=== PATIENT | female | born 1950 ===

== ENCOUNTER 2019-10-09 11:26 | Outpatient (CLI) | payer OTHER ==
[2019-10-10 12:10] LABS: SARS-CoV-2 MS2 Positive; SARS-CoV-2 N Gene Negative; SARS-CoV-2 S Gene Negative; SARS-CoV-2 by NAA Not Detected (NotDetected); SARS-CoV-2 orf1ab Negative
== END 2019-10-09 11:27 | disposition home or self-care (01) ==
LOC: LABSCS 11:26
PROVIDERS: ATTEND Surgery
DX: Z01.812 Encounter for preprocedural laboratory examination (principal); Z11.59 Encounter for screening for other viral diseases; R13.14 Dysphagia, pharyngoesophageal phase
CPT/HCPCS: 87635; U0003

== ENCOUNTER 2022-07-27 15:19 | Observation (INO) | payer OTHER ==
[~2022-07-27 15:19] MED LIST: Iopamidol-370 76% 500 ML MDV (1 ML CHARGE) ONE
[2022-07-27 19:38] VITALS: BMI 23.7
[2022-07-27] MEDS ORDERED: Acetaminophen 650 MG Suppository PR PRN (21:04)
[2022-07-27] MEDS ORDERED: Ondansetron PF 4 MG/2 ML Vial IVP PRN (21:04)
[2022-07-27] MEDS ORDERED: Acetaminophen 325 MG TAB PO PRN (21:04)
[2022-07-27] MEDS ORDERED: hydrALAZINE 20 MG/ML VIAL SLOW IVP PRN (21:04)
[2022-07-27] MEDS ORDERED: Ondansetron ODT 4 MG TAB PO PRN (21:04)
[2022-07-28 05:25] LABS: #Eosinphils 0.2 thou/uL (0.0-0.7); #Monocytes 0.4 thou/uL (0.11-0.59); #Neutrophils 1.8 thou/uL (1.40-6.50); %Basophils 0.5 % (0.0-1.0); %Eosinophils 4.9 % (0.0-10.0); %Lymphocytes 35.2 % (21.0-51.0); %Monocytes 10.4 % (0.0-10.0); %Neutrophils 48.7 % (42.0-75.0); Hemoglobin 12.8 g/dL (12.0-16.0); Mean Corpuscular HGB CONC 32.6 g/dL (32.0-36.0); Mean Corpuscular Hemoglobin 28.6 pg (27.0-31.0); Mean Corpuscular Volume 87.9 fl (78.0-98.0); Mean Platelet Volume 12.3 fL (7.4-10.4); Platelet Count 147 10x3/uL (130-400); RBC Distribution Width 13.2 % (11.5-14.5); Red Blood Cell (RBC) Count 4.47 mill/uL (4.20-5.40); White Blood Cell (WBC) Count 3.6 10x3/uL (4.8-10.8)
[2022-07-28 05:48] LABS: Anion Gap 9 mmol/L (10-20); BUN (Urea Nitrogen) 6 mg/dL (9.8-20.1); Calc. Creatinine Clearance 66 mL/min (70-130); Calcium 8.6 mg/dL (7.8-10.44); Carbon Dioxide 28 mmol/L (23-31); Cardiac Risk 3.6 (Less than 4.5); Chloride 107 mmol/L (98-107); Cholesterol 179 mg/dl (< 200 Desired); Estimated GFR 76; Glucose 79 mg/dL (80-115); HDL Cholesterol 50 mg/dL (>60 Neg Risk); LDL Cholesterol, Calculated 111 mg/dL; Sodium 140 mmol/L (136-145); Triglycerides 92 mg/dL (Less than 150)
[2022-07-28] MEDS ORDERED: Aspirin 81 mg Enteric Coated Tablet PO SCH (09:00)
[2022-07-28] MEDS ORDERED: HumaLOG 300 UNITS/3 ML VIAL SC PRN (09:03)
[2022-07-28] MEDS ORDERED: Dextrose 50% Abboject 50 ML SYRINGE SLOW IVP PRN (09:03)
[2022-07-28] MEDS ORDERED: Dextrose 5% in Water 1,000 ML IV PRN (09:03)
[2022-07-28] MEDS ORDERED: Pregabalin 75 MG CAP PO SCH ×2 (09:15→21:00)
[2022-07-28] MEDS ORDERED: Escitalopram Oxalate 20 mg Tablet PO SCH (09:15)
[2022-07-28 11:54] LABS: Magnesium 1.9 mg/dL (1.6-2.6)
[2022-07-28 12:34] VITALS: BP 120/78; TEMP 97.8
[2022-07-28] MEDS ORDERED: Atorvastatin Calcium 40 MG TAB PO SCH (21:00)
[2022-07-28] MEDS ORDERED: Non-Formulary Item 1 EACH (Pregabalin [Lyrica] 150 MG Capsule) PO SCH (21:00)
[2022-07-29] MEDS ORDERED: Escitalopram Oxalate 20 mg Tablet PO SCH (09:00)
== END 2022-07-28 15:45 | disposition home or self-care (01) ==
LOC: NEURO 18:58
PROVIDERS: ADMIT Internal Medicine; ATTEND Internal Medicine
DX: R47.81 Slurred speech (principal); R42 Dizziness and giddiness; R53.1 Weakness; G89.29 Other chronic pain; M54.9 Dorsalgia, unspecified; I08.8 Other rheumatic multiple valve diseases; Z79.85 Long-term (current) use of injectable non-insulin antidiabetic drugs; Z79.899 Other long term (current) drug therapy; Z88.8 Allergy status to other drugs, medicaments and biological substances
CPT/HCPCS: 36415; 36416; 70496; 70498; 70551; 80048; 80061; 83735; 84443; 85025; 93306; G0378; Q9967